=== PATIENT | female | born 1960 | race Caucasian/White ===

== ENCOUNTER 2018-06-13 21:58 | Emergency (ER) | payer OTHER ==
[~2018-06-13] VITALS: Ht 162.6 cm; Wt 53.1 kg
--- NOTE | 2018-06-13 22:10 | NUR ---
Dr. Hernandez at bedside for MSE.
--- NOTE | 2018-06-13 22:23 | NUR ---
Xray at bedside.
--- NOTE | 2018-06-13 22:52 | NUR ---
Patient discharged to home in stable conditon. Written and verbal after care instructions given. Patient verbalizes understanding of instructions. Pt ambulated out of ER with steady gait, no acute signs of distress, VSS, all belongings taken.
[2018-06-13 22:54] VITALS: BP 130/78
== END 2018-06-13 22:55 | disposition home or self-care (01) ==
LOC: ER 22:00
DX: S62.614A Displaced fracture of proximal phalanx of right ring finger, initial encounter for closed fracture (principal); Z88.8 Allergy status to other drugs, medicaments and biological substances; W23.0XXA Caught, crushed, jammed, or pinched between moving objects, initial encounter; Y93.89 Activity, other specified; Y92.89 Other specified places as the place of occurrence of the external cause; Y99.8 Other external cause status
CPT/HCPCS: 73130; A4663

== ENCOUNTER 2018-08-06 14:16 | Emergency (ER) | END 2018-08-06 15:18 | disposition home or self-care (01) | DX: S62.604D Fracture of unspecified phalanx of right ring finger, subsequent encounter for fracture with routine healing (principal); M79.644 Pain in right finger(s); Z88.8 Allergy status to other drugs, medicaments and biological substances; X58.XXXD Exposure to other specified factors, subsequent encounter ==